=== PATIENT | female | born 1950 | race Caucasian/White ===

== ENCOUNTER 2017-08-31 16:41 | Observation (INO) | payer MEDICARE, BC ==
[~2017-08-31] VITALS: Ht 167.6 cm; Wt 88.6 kg
[2017-08-31] VITALS (13 sets, daily range): BP systolic 122–149; BP diastolic 55–69
[2017-08-31] MEDS ORDERED: TENORMIN100 MG PO (16:54)
[2017-08-31] MEDS ORDERED: PREVACID30 MG PO (16:54)
[2017-08-31] MEDS ORDERED: HYDROCHLOROTH12.5 M1 PO (16:55)
[2017-08-31] MEDS ORDERED: LIPITOR20 MG PO (16:55)
[2017-08-31] MEDS ORDERED: LEXAPRO5 MG PO (16:55)
[2017-08-31 17:21] LABS: BASOPHILS 0.2 % (0-2); EOSINOPHILS 1.1 % (0-7); HEMATOCRIT 40.6 % (36.0-48.0); HEMOGLOBIN 13.8 g/dL (12-16); IMMATURE GRANULOCYTES 0.3 % (0-5); LYMPHOCYTES 35.5 % (15-50); MCH 30.5 pg (26.0-34.0); MCV 89.8 fL (80.0-100.0); MEAN PLATELET VOLUME 10.4 fL (7.4-10.4); MONOCYTES 7.4 % (2-11); NEUTROPHILS 55.5 % (40-80); PLATELET COUNT 274 10x3/uL (130-400); RBC 4.52 10x6/uL (4.00-5.40); RDW 13.2 % (11.5-14.5); WBC 9.9 10x3/uL (4.8-10.8)
[2017-08-31 17:38] LABS: ALBUMIN 3.5 g/dL (3.4-5.0); ALKALINE PHOSPHATASE 116 U/L (46-116); ALT (SGPT) 28 U/L (10-68); CALC OSMOLALITY 279 mosm/kg (275-300); CARBON DIOXIDE 28.4 mmol/L (21.0-32.0); CHLORIDE - SERUM 103 mmol/L (98-107); CREATINE KINASE 109 UL (21-215); CREATININE - SERUM 0.9 mg/dL (0.6-1.3); GLUCOSE 108 mg/dL (74-106); POTASSIUM - SERUM 3.3 mmol/L (3.5-5.1); PROTEIN - SERUM 6.9 g/dL (6.4-8.2); SODIUM 139 mmol/L (136-145); TROPONIN-I < 0.017 ng/mL (0.000-0.060); UREA NITROGEN 15 mg/dL (7-18); eGFR NON AFRICAN AMERICAN 67 mL/min (90-120)
[2017-08-31 18:29] LABS: INR 0.9 (0.85-1.17); PROTIME 11.7 SECONDS (11.6-15.0)
[2017-08-31 18:39] LABS: CKMB 1.2 U/L (0.0-3.6); PRO BNP 116 pg/mL (0-125)
[2017-09-01 00:44] LABS: CKMB 1.2 U/L (0.0-3.6); CREATINE KINASE 64 UL (21-215)
[2017-09-01 01:01] LABS: TROPONIN-I < 0.017 ng/mL (0.000-0.060)
[2017-09-01 04:34] VITALS: BP 114/58; BMI 31.5
[2017-09-01 05:17] VITALS: BP 114/58
[2017-09-01 07:51] LABS: CKMB 0.7 U/L (0.0-3.6); CREATINE KINASE 71 UL (21-215); TROPONIN-I < 0.017 ng/mL (0.000-0.060)
[2017-09-01 09:11] VITALS: BP 103/66; BP 160/44
[2017-09-01] MEDS ORDERED: ASPIRIN325 MG PO (11:44)
[2017-09-01] MEDS ORDERED: NITRO-BID60 GM TP (11:45)
[2017-09-01 12:01] VITALS: Ht 167.6 cm; Wt 88.6 kg
[2017-09-01 12:35] VITALS: BP 108/48
== END 2017-09-01 13:38 | disposition home or self-care (01) ==
LOC: D.ER 16:41 → OBSVTIME 09-01 00:02 → D.M2 09-01 00:02
PROVIDERS: Emergency Medicine; Family Medicine
DX: I25.110 Atherosclerotic heart disease of native coronary artery with unstable angina pectoris (principal); Z95.5 Presence of coronary angioplasty implant and graft; I10 Essential (primary) hypertension; M32.9 Systemic lupus erythematosus, unspecified; E78.5 Hyperlipidemia, unspecified; F41.8 Other specified anxiety disorders; K21.9 Gastro-esophageal reflux disease without esophagitis; R19.7 Diarrhea, unspecified